=== PATIENT | female | born 2000 | race Caucasian/White ===

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

== ENCOUNTER 2022-12-01 21:39 | Emergency (ER) | payer MEDICAID ==
[~2022-12-01] VITALS: Ht 150 cm; Wt 51.0 kg
[~2022-12-01 21:39] MED LIST: ACHD5005 PO; CLIN-144 PO
[2022-12-01] MEDS ORDERED: FLUO40CA (22:00)
[2022-12-01] MEDS ORDERED: BUSP10TA95 (22:00)
[2022-12-01] MEDS ORDERED: LAMO200T5 (22:00)
[2022-12-01] MEDS ORDERED: FLUO20CA48 (22:00)
[2022-12-01] MEDS ORDERED: ZONI100C79 (22:00)
[2022-12-01] MEDS ORDERED: ONDANSETRON 4 MG/2 ML (SDV) Z0FRAN IVP ONE (22:15)
[2022-12-01] MEDS ORDERED: LACTATED RINGERS 1,000 ML IV ONE (22:15)
[2022-12-01 22:21] LABS: BASOPHILS % (AUTO) 0 % (0-10); EOSINOPHILS % (AUTO) 1 % (0-10); HEMATOCRIT 32 % (35-52); HEMOGLOBIN 10.8 g/dL (11.5-16.0); LYMPHOCYTES # (AUTO) 0.5 10^3/uL (1.0-4.0); LYMPHOCYTES % (AUTO) 15 % (12-44); MEAN CORPUSCULAR HEMOGLOBIN 30 pg (25-34); MEAN CORPUSCULAR HGB CONC 33 g/dL (32-36); MEAN CORPUSCULAR VOLUME 89 fL (80-99); MEAN PLATELET VOLUME 9.1 fL (9.0-12.2); MONOCYTES # (AUTO) 0.2 10^3/uL (0.0-1.0); MONOCYTES % (AUTO) 4 % (0-12); NEUTROPHILS # (AUTO) 2.7 10^3/uL (1.8-7.8); NEUTROPHILS % (AUTO) 79 % (42-75); PLATELET COUNT 199 10^3/uL (130-400); WHITE BLOOD COUNT 3.4 10^3/uL (4.3-11.0)
[2022-12-01 22:36] LABS: ALBUMIN 3.9 GM/DL (3.2-4.5); POTASSIUM 3.7 MMOL/L (3.6-5.0)
[2022-12-01 22:38] LABS: TOTAL PROTEIN 7.5 GM/DL (6.4-8.2)
[2022-12-01 22:40] LABS: BILIRUBIN,TOTAL 0.4 MG/DL (0.1-1.0)
[2022-12-01 22:42] LABS: CREATININE SERUM 0.82 MG/DL (0.60-1.30)
[2022-12-01 23:43] LABS: CLARITY,URINE CLEAR; COLOR,URINE YELLOW; GLUCOSE, URINE (UA) NEGATIVE (NEGATIVE); KETONES,URINE TRACE (NEGATIVE); LEUKOCYTE ESTERASE ,URINE 2+ (NEGATIVE); NITRITE,URINE NEGATIVE (NEGATIVE); PH,URINE 6.5 (5-9); PROTEIN,URINE NEGATIVE (NEGATIVE)
[2022-12-01] MEDS ORDERED: RX-ONDANSETRON 4 MG ODT (ZOFRAN) PPK #4 PO STA (23:54)
[2022-12-01] MEDS ORDERED: ONDA4TAB11 PO (23:55)
--- NOTE | 2022-12-01 23:56 | ED GI ---
General Chief Complaint: Abdominal/GI Problems Stated Complaint: VOMITING/CAN'T KEEP MEDS DOWN Nursing Triage Note: REPORTS NAUSEA/VOMITTING, UNABLE TO KEEP MEDICATIONS DOWN TODAY. (ZONISAMIDE, LAMOTRIGINE, BUSPIRONE, FLOXETINE) Allergies and Home Medications Allergies Coded Allergies: No Known Drug Allergies (Unverified , 06/11/19) Patient Home Medication List Buspirone HCl (Buspirone HCl) 10 Mg Tablet, (Reported) Entered as Reported by: TIMI HENNESSY on 12/01/222199 Last Action: New Order Fluoxetine HCl (Fluoxetine HCl) 20 Mg Capsule, (Reported) Entered as Reported by: TIMI HENNESSY on 12/01/222199 Last Action: New Order Fluoxetine HCl (Fluoxetine HCl) 40 Mg Capsule, (Reported) Entered as Reported by: TIMI HENNESSY on 12/01/222199 Last Action: New Order Lamotrigine (Lamotrigine) 200 Mg Tablet, (Reported) Entered as Reported by: TIMI HENNESSY on 12/01/222199 Last Action: New Order Ondansetron (Ondansetron Odt) 4 Mg Tab.rapdis, 4 MG PO Q4H Prescribed by: SRINIVAS BLUE on 12/01/222354 Zonisamide (Zonisamide) 100 Mg Capsule, (Reported) Entered as Reported by: TIMI HENNESSY on 12/01/222199 Last Action: New Order Discontinued Medications Clindamycin HCl (Clindamycin HCl) 300 Mg Capsule, 300 MG PO TID Discontinued Reason: No Longer Taking Prescribed by: ADWOA PETERSON on 06/11/191706 Last Action: Discontinued Hydrocodone Bit/Acetaminophen (Lortab 5 Mg Tablet) 1 Tab Tab, 1 EACH PO Q4-6HR PRN for PAIN-MODERATE Discontinued Reason: No Longer Taking Prescribed by: ADWOA PETERSON on 06/11/191706 Last Action: Discontinued Past Upspsng-Ebhyan-Nvigyd Hx Patient Social History Tobacco Use?: No Substance use?: No Alcohol Use?: No Pt feels they are or have been: No Immunizations Up To Date First/Initial COVID19 Vaccinat: NA Seasonal Allergies Seasonal Allergies: No Past Medical History Surgery/Hospitalization HX: SEIZURES, ANXIETY,DEPRESSION Surgeries: No Respiratory: No Cardiac: No Neurological: Yes Seizure Disorder Genitourinary: No Gastrointestinal: No Musculoskeletal: No Endocrine: No HEENT: No Cancer: No Psychosocial: No Integumentary: No Blood Disorders: No Physical Exam Vital Signs Vital Signs - First Documented 12/01/22 21:49 Temp 36.7 Pulse 89 Resp 16 B/P (MAP) 100/62 (75) Pulse Ox 97 O2 Delivery Room Air Capillary Refill : Less Than 3 Seconds Height/Weight/BMI Height: 4'11.00" Weight: 114lbs. oz. [id number]; 22.00 BMI Method:Stated Progress/Results/Core Measures Results/Orders Lab Results Laboratory Tests Test 12/01/22 22:10 12/01/22 23:30 Range/Units White Blood Count 3.4 L 4.3-11.0 10^3/uL Red Blood Count 3.66 L 3.80-5.11 10^6/uL Hemoglobin 10.8 L 11.5-16.0 g/dL Hematocrit 32 L 35-52 % Mean Corpuscular Volume 89 80-99 fL Mean Corpuscular Hemoglobin 30 25-34 pg Mean Corpuscular Hemoglobin Concent 33 32-36 g/dL Red Cell Distribution Width 11.8 10.0-14.5 % Platelet Count 199 130-400 10^3/uL Mean Platelet Volume 9.1 9.0-12.2 fL Immature Granulocyte % (Auto) 0 % Neutrophils (%) (Auto) 79 H 42-75 % Lymphocytes (%) (Auto) 15 12-44 % Monocytes (%) (Auto) 4 0-12 % Eosinophils (%) (Auto) 1 0-10 % Basophils (%) (Auto) 0 0-10 % Neutrophils # (Auto) 2.7 1.8-7.8 10^3/uL Lymphocytes # (Auto) 0.5 L 1.0-4.0 10^3/uL Monocytes # (Auto) 0.2 0.0-1.0 10^3/uL Eosinophils # (Auto) 0.0 0.0-0.3 10^3/uL Basophils # (Auto) 0.0 0.0-0.1 10^3/uL Immature Granulocyte # (Auto) 0.0 0.0-0.1 10^3/uL Sodium Level 137 135-145 MMOL/L Potassium Level 3.7 3.6-5.0 MMOL/L Chloride Level 108 H 98-107 MMOL/L Carbon Dioxide Level 19 L 21-32 MMOL/L Anion Gap 10 5-14 MMOL/L Blood Urea Nitrogen 11 7-18 MG/DL Creatinine 0.82 0.60-1.30 MG/DL Estimat Glomerular Filtration Rate 104 BUN/Creatinine Ratio 13 Glucose Level 85 70-105 MG/DL Calcium Level 9.0 8.5-10.1 MG/DL Corrected Calcium 9.1 8.5-10.1 MG/DL Total Bilirubin 0.4 0.1-1.0 MG/DL Aspartate Amino Transf (AST/SGOT) 17 5-34 U/L Alanine Aminotransferase (ALT/SGPT) 13 0-55 U/L Alkaline Phosphatase 108 40-136 U/L Total Protein 7.5 6.4-8.2 GM/DL Albumin 3.9 3.2-4.5 GM/DL Amylase Level 52 25-125 U/L Lipase 11 8-78 U/L Serum Test, Qualitative NEGATIVE NEGATIVE Influenza Type A (RT-PCR) Not Detected Not Detecte Influenza Type B (RT-PCR) Not Detected Not Detecte SARS-CoV-2 RNA (RT-PCR) Not Detected Not Detecte Urine Color YELLOW Urine Clarity CLEAR Urine pH 6.5 5-9 Urine Specific [place] 1.025 H 1.016-1.022 Urine Protein NEGATIVE NEGATIVE Urine Glucose (UA) NEGATIVE NEGATIVE Urine Ketones TRACE H NEGATIVE Urine Nitrite NEGATIVE NEGATIVE Urine Bilirubin N NEGATIVE Urine Urobilinogen 1.0 < = 1.0 MG/DL Urine Leukocyte Esterase 2+ H NEGATIVE Urine RBC (Auto) NEGATIVE NEGATIVE Urine RBC NONE /HPF Urine WBC 25-50 H /HPF Urine Squamous Epithelial Cells 25-50 H /HPF Urine Crystals NONE /LPF Urine Bacteria MODERATE H /HPF Urine Casts NONE /LPF Urine Mucus LARGE H /LPF Urine Culture Indicated YES My Orders Orders - SRINIVAS BLUE DO Ed Iv/Invasive Line Start (12/01/22 22:04) Amylase (12/01/22 22:04) Cbc With Automated Diff (12/01/22 22:04) Comprehensive Metabolic Panel (12/01/22 22:04) Hcg,Qualitative Serum (12/01/22 22:04) Lipase (12/01/22 22:04) Ua Culture If Indicated (12/01/22 22:04) Ondansetron Injection (Zofran Injectio (12/01/22 22:15) Ed Iv/Invasive Line Start (12/01/22 22:04) Lactated Ringers (Lr 1000 Ml Iv Solution (12/01/22 22:15) Covid 19 Inhouse Test (12/01/22 22:04) Influenza A And B By Pcr (12/01/22 22:04) Isolation Central Supply Req (12/01/22 22:04) Rx-Ondansetron Po (Rx-Zofran Po) (12/01/22 23:54) Urine Culture (12/01/22 23:30) Medications Given in ED Current Medications Medications Dose Ordered Sig/Lester Route Start Time Stop Time Status Last Admin Dose Admin Lactated Ringer's 1,000 ml @ 0 mls/hr Q0M ONCE IV 12/01/22 22:15 12/01/22 22:16 DC 12/01/22 22:15 0 MLS/HR Ondansetron HCl 4 mg ONCE ONCE IVP 12/01/22 22:15 12/01/22 22:16 DC 12/01/22 22:15 4 MG Vital Signs/I&O 12/01/22 21:49 Temp 36.7 Pulse 89 Resp 16 B/P (MAP) 100/62 (75) Pulse Ox 97 O2 Delivery Room Air 12/02/22 00:00 Intake Total 1000 ml Balance 1000 ml Blood Pressure Mean: 75 Departure Impression Primary Impression: Nausea and vomiting Additional Impression: Urinary tract infection Disposition: 01 HOME, SELF-CARE Condition: Improved Departure-Patient Inst. Decision time for Depature: 00:03 [facility] Primary Care Physician Patient Instructions: Nausea and Vomiting, Adult ED, Urinary Tract Infection, Adult (DC) Add. Discharge Instructions: CLEAR LIQUIDS--WATER, BROTH, JELLO, GATORADE TOMORROW IF YOU ARE BETTER, ADD BRATS DIET TO CLEAR LIQUIDS--BANANAS, RICE, APPLESAUCE, TOAST, SALTINES FOLLOW UP WITH [facility] IN 1-2 DAYS IF NO BETTER, RETURN TO ER IF WORSE All discharge instructions reviewed with patient and/or family. Voiced understanding. Scripts Nitrofurantoin Monohyd/M-Cryst (Macrobid 100 mg Capsule) 100 Mg Capsule 1 TAB PO BID, #20 CAP Prov: SRINIVAS BLUE DO 12/02/22 Ondansetron (Ondansetron Odt) 4 Mg Tab.rapdis 4 MG PO Q4H for Nausea/Vomiting, #10 TAB Prov: SRINIVAS BLUE DO 12/01/22 SRINIVAS BLUE DO Dec 01, 2022 23:56
[2022-12-02] LABS: BACTERIA,URINE MODERATE /HPF; BILIRUBIN,URINE N (NEGATIVE); WBC,URINE 25-50 /HPF
[2022-12-02 00:01] LABS: SQUAMOUS EPITHELIAL CELL,UR 25-50 /HPF
[2022-12-02] MEDS ORDERED: RX-NITROFURANTOIN 100 MG (MACROBID) CAP PPK#2 PO STA (00:03)
[2022-12-02] MEDS ORDERED: NITR-65 PO (00:04)
[2022-12-02 00:15] VITALS: BP 114/61
== END 2022-12-02 00:15 | disposition home or self-care (01) ==
LOC: EDUNIT# 21:39 → ER 21:42
DX: N39.0 Urinary tract infection, site not specified (principal); Z20.822 Contact with and (suspected) exposure to COVID-19; Z28.310 Unvaccinated for COVID-19
CPT/HCPCS: 36415; 80053; 81000; 82150; 83690; 84703; 85025; 87088; 87636; 96361; 96374; 99283